=== PATIENT | female | born 1955 | race Caucasian/White ===

== ENCOUNTER → 2023-03-03 | Outpatient (CLI) | payer MEDICARE ==
--- NOTE | 2023-03-07 02:00 | HM ---
HOLTER MONITOR REPORT The patient was monitored for 24 hours. CLINICAL INFORMATION: Baseline rhythm is a sinus mechanism. The average rate 78 beats per minute, minimum 63, maximum 118 beats per minute. Ventricular ectopic activity was present in the form of rare single PVCs. Supraventricular ectopic activity was present in the form of rare single PACs. No diary was available. CONCLUSION: 1. Sinus mechanism with baseline rhythm. 2. Rare single PVCs with 1 couplets, 2 rare single PACs. 3. No diary was available. MMODL / IJN: [id number] /
== END | disposition home or self-care (01) ==
LOC: RADECHMAIN 11:57
PROVIDERS: ATTEND Family Medicine
DX: R00.2 Palpitations (principal); I49.3 Ventricular premature depolarization; I49.1 Atrial premature depolarization
CPT/HCPCS: 93225; 93226